=== PATIENT | female | born 1945 | race Two or more races ===

== ENCOUNTER 2018-10-02 17:36 | Outpatient (CLI) | payer OTHER | END 2018-10-02 17:40 | disposition home or self-care (01) | LOC: RAD 17:36 | DX: M17.11 Unilateral primary osteoarthritis, right knee (principal); Z76.89 Persons encountering health services in other specified circumstances; M79.651 Pain in right thigh; M79.604 Pain in right leg ==

== ENCOUNTER → 2018-10-03 | Outpatient (CLI) | payer OTHER | END | disposition home or self-care (01) | LOC: NUCLEAR 09:40 | DX: M81.0 Age-related osteoporosis without current pathological fracture (principal) ==

== ENCOUNTER 2018-10-08 13:58 | Outpatient (CLI) | payer OTHER | END 2018-10-08 14:04 | disposition home or self-care (01) | LOC: LAB 13:58 | DX: N39.0 Urinary tract infection, site not specified (principal); B95.62 Methicillin resistant Staphylococcus aureus infection as the cause of diseases classified elsewhere ==

== ENCOUNTER 2018-10-24 08:28 | Outpatient (CLI) | payer OTHER | END 2018-10-24 08:44 | disposition home or self-care (01) | LOC: LAB 08:28 | DX: D64.89 Other specified anemias (principal); E88.89 Other specified metabolic disorders; D68.8 Other specified coagulation defects; N39.0 Urinary tract infection, site not specified; E03.8 Other specified hypothyroidism; Z22.322 Carrier or suspected carrier of Methicillin resistant Staphylococcus aureus; I49.8 Other specified cardiac arrhythmias; Z76.89 Persons encountering health services in other specified circumstances ==

== ENCOUNTER 2018-10-27 11:44 | Inpatient (IN) | payer OTHER ==
[~2018-10-27] VITALS: Ht 157.5 cm; Wt 71.2 kg
[2018-10-31] MEDS ORDERED: XARELTO10 MG PO (11:55)
== END 2018-10-31 14:31 | disposition home or self-care (01) | DRG 470 ==
LOC: O/R 10-28 05:10 → SURG 10-28 05:10 → SURH 10-28 09:30 → SURG 10-28 13:28 → SURH 10-28 17:00 → SURG 10-31 14:31
PROVIDERS: ADMIT Orthopaedic Surgery
PROC: 0QRD0JZ Replacement of Right Patella with Synthetic Substitute, Open Approach (ICD-10-PCS; 2018-10-28)
PROC: 0T9B70Z Drainage of Bladder with Drainage Device, Via Natural or Artificial Opening (ICD-10-PCS; 2018-10-28)
PROC: 0SRC0J9 Replacement of Right Knee Joint with Synthetic Substitute, Cemented, Open Approach (ICD-10-PCS; principal; 2018-10-28 09:30)
DX: M17.11 Unilateral primary osteoarthritis, right knee (principal); D62 Acute posthemorrhagic anemia

== ENCOUNTER 2018-12-17 11:41 | Outpatient (CLI) | payer OTHER ==
[~2018-12-17 11:41] MED LIST: XARELTO10 MG PO
== END 2018-12-17 14:07 | disposition home or self-care (01) ==
LOC: RAD 11:41
DX: M25.561 Pain in right knee (principal)

== ENCOUNTER 2019-05-13 07:39 | Outpatient (CLI) | payer OTHER | END 2019-05-13 07:41 | disposition home or self-care (01) | LOC: RAD 07:39 | DX: M25.552 Pain in left hip (principal) ==